=== PATIENT | female | born 1970 | race African-American/Black ===

== ENCOUNTER 2016-04-17 09:02 | Emergency (ER) | payer SELFPAY ==
[~2016-04-17] VITALS: Ht 165.1 cm; Wt 77.1 kg
[~2016-04-17 09:02] MED LIST: LISI1TAB3 PO
--- NOTE | 2016-04-17 10:13 | PHYS DOC ---
Past Medical History Past Medical History: Hypertension, Other Additional Past Medical Histor: borderline diabetic(not prescribed meds) headaches Past Surgical History: No Surgical History Alcohol Use: None Drug Use: None Adult General Chief Complaint Chief Complaint: MECHANICAL FALL HPI HPI Patient is a 45 year old female with history of hypertension who presents today with mild left elbow pain worse on movement that began this morning at 2 AM when she slipped down to steps and fell hitting her elbow on the steps. Patient denies any loss of consciousness. She states she was dizzy after falling for a few seconds. Review of Systems Review of Systems Constitutional: Denies fever or chills [] Eyes: Denies change in visual acuity, redness, or eye pain [] HENT: Denies nasal congestion or sore throat [] Respiratory: Denies cough or shortness of breath [] Cardiovascular: No additional information not addressed in HPI [] GI: Denies abdominal pain, nausea, vomiting, bloody stools or diarrhea [] : Denies dysuria or hematuria [] Musculoskeletal: Left elbow pain Integument: Denies rash or skin lesions [] Neurologic: Dizziness after falling Endocrine: Denies polyuria or polydipsia [] Allergies Allergies Allergies Coded Allergies Type Severity Reaction Last Updated Verified sulfamethoxazole Allergy Unknown 08/22/14 No trimethoprim Allergy Unknown 08/22/14 No Physical Exam Physical Exam Constitutional: Well developed, well nourished, no acute distress, non-toxic appearance. [] HENT: Normocephalic, atraumatic, bilateral external ears normal, oropharynx moist, no oral exudates, nose normal. [] Eyes: PERRLA, EOMI, conjunctiva normal, no discharge. [] Neck: Normal range of motion, no tenderness, supple, no stridor. [] Cardiovascular:Heart rate regular rhythm, no murmur [] Lungs & Thorax: Bilateral breath sounds clear to auscultation [] Abdomen: Bowel sounds normal, soft, no tenderness, no masses, no pulsatile masses. [] Skin: Warm, dry, no erythema, no rash. [] Back: No tenderness, no CVA tenderness. [] Extremities: Left elbow with no obvious edema and no ecchymosis no deformity. Tenderness on palpation of the left lateral elbow. Full range of motion to the left elbow. Adequate plantar flexion and dorsiflexion of the left forearm. Adequate flexion and extension of the left forearm. +2 left radial pulse. Cap refill less than 2 seconds the left upper extremity. Sensation intact to the left upper extremity. Neurologic: Alert and oriented X 3, normal motor function, normal sensory function, no focal deficits noted. Cranial nerves II through XII intact Psychologic: Affect normal, judgement normal, mood normal. [] Current Patient Data Vital Signs Vital Signs Date Time Temp Pulse Resp B/P Pulse Ox O2 Delivery O2 Flow Rate FiO2 04/17/16 10:00 98.3 81 20 99 Room Air 98.3 EKG EKG [] Radiology/Procedures Radiology/Procedures [] Course & Med Decision Making Course & Med Decision Making Pertinent Labs and Imaging studies reviewed. (See chart for details) Patient is in the ED with left elbow pain after falling on it. Does not loss of consciousness when she fell. She did state she had some dizziness for a few seconds. Neurologically she is intact right now. Left elbow x-rays interpreted by radiologist are negative for any acute findings. Chay wrap was applied to the left elbow by the behavioral health tech, neurovascular exam done by me is normal, cap refill less than 2 seconds. Ice elevation encouraged. Naproxen for pain. Follow- up with orthopedic doctor in a week if pain continues. Dragon Disclaimer Dragon Disclaimer This electronic medical record was generated, in whole or in part, using a voice recognition dictation system. Departure Departure Impression: Primary Impression: Fall down steps Additional Impression: Left elbow contusion Disposition: HOME, SELF-CARE Condition: STABLE Referrals: NO PCP (PCP) NIESHA IBRAHIM MD Follow-up with the provided orthopedic doctor in a week if pain continues Patient Instructions: Contusion Additional Instructions: You were seen for contusion of the left elbow. Keep the Chay wrap on as tolerated. Ice and elevate the extremity. Take naproxen as needed for pain. Follow-up with the provided orthopedic doctor or your own doctor in a week if pain continues. Scripts Naproxen 500 Mg Tablet.dr1 Tab PO BID #60 TAB Ref 1 Prov:CARLTON COMBS APRN 04/17/16 Problem Qualifiers Primary Impression: Fall down steps Encounter type: initial encounter Qualified Code: W10.8XXA - Fall (on) (from ) other stairs and steps, initial encounter CARLTON COMBS APRN Apr 17, 2016 10:13
--- NOTE | 2016-04-17 10:47 | RAD ---
Left elbow, 3 views, 04/17/2016: History: Fall, pain No fracture or dislocation is identified. There is no radiographic evidence of a joint effusion. There is mild subcutaneous edema posteriorly. IMPRESSION: No acute bony abnormality is detected.
[2016-04-17] MEDS ORDERED: NAPR500T8 PO (11:25)
[2016-04-17 14:37] VITALS: BP 163/98
== END 2016-04-17 12:00 | disposition home or self-care (01) ==
LOC: ER 09:02
DX: S50.02XA Contusion of left elbow, initial encounter (principal); I10 Essential (primary) hypertension; Z88.2 Allergy status to sulfonamides; Z88.1 Allergy status to other antibiotic agents; W10.8XXA Fall (on) (from) other stairs and steps, initial encounter; Y93.89 Activity, other specified; Y99.8 Other external cause status; Y92.89 Other specified places as the place of occurrence of the external cause
CPT/HCPCS: 73080; 99284